=== PATIENT | female | born 2000 | race Hispanic/Latino ===

== ENCOUNTER 2018-01-07 23:51 | Emergency (ER) | payer OTHER ==
--- NOTE | 2018-01-08 09:36 | ULT ---
PRELIMINARY REPORT/[facility]/EMERGENTY AFTER-HOURS PROCEDURE US Abdomen Limited, Right Upper Quadrant CLINICAL HISTORY: 17 years old, female; Pain and signs and symptoms; Constipation and nausea; Abdominal pain; Localized ; Right upper quadrant (ruq) TECHNIQUE: Real-time ultrasound of the right upper quadrant with image documentation. COMPARISON: No relevant prior studies available. FINDINGS: Liver: No acute findings. No mass. No intrahepatic bile duct dilation. Gallbladder: The gallbladder is contracted. Multiple small gallstones/sludge. Negative Jackson sign. Common bile duct: Unremarkable. Pancreas: Limited visualization due to bowel gas. Unremarkable as visualized. Right kidney: No acute findings. No stones. No solid mass. No hydronephrosis. IMPRESSION: Cholelithiasis. Thank you for allowing us to participate in the care of your patient. Dictated and Authenticated by: Andrea Cox MD 01/08/2018 1:11 AM Central Time ([place] & [place]) FINAL REPORT EMERGENT AFTER HOURS GALLBLADDER ULTRASOUND: HISTORY: Right upper quadrant pain. FINDINGS: Real-time imaging of the right upper quadrant shows some small echogenic densities which are mobile w ithin the gallbladder. They do not show definitive shadowing but most likely represent tiny nonshado wing stones, less likely sludge. The gallbladder itself is contracted. The technologist reports a n egative ultrasound Beltran's sign. The common duct is 4 mm. The visualized liver parenchyma shows no focal findings. The right kidney is normal in size and not obstructed. Pancreas is obscured. IMPRESSION: 1. Contrasted gallbladder with small gallstones. It is difficult to show shadowing of these small e chogenic densities, but they are mobile. On some of the images, there does appear to be faint shadow ing and, therefore, are felt to represent small stones. 2. This report is in agreement with the temporary report issued by [facility]. POS: [facility]
== END 2018-01-08 01:54 | disposition home or self-care (01) ==
LOC: ERS 23:51
DX: R10.13 Epigastric pain (principal); J45.909 Unspecified asthma, uncomplicated
CPT/HCPCS: 76705